=== PATIENT | female | born 1995 | race Caucasian/White ===

== ENCOUNTER 2017-01-30 11:06 | Emergency (ER) | payer OTHER ==
[2017-01-30 13:10] LABS: % IMMATURE GRANULYOCYTES 0.2 % (0.0-1.1); ABSOLUTE IMMATURE GRANULOCYTES 0.02 10^3/uL (0.00-0.10); ADD DIFF? NO; ADD MORPH? NO; ADD SCAN? NO; ATYPICAL LYMPHOCYTE FLAG 0 (0-99); FRAGMENT RBC FLAG 0 (0-99); HEMATOCRIT 41.9 % (38.0-47.0); HEMOGLOBIN 14.4 g/dL (12.6-16.3); LEFT SHIFT FLG 0 (0-99); LIPEMIA HEMOLYSIS FLAG 90 (0-99); MEAN CELL HEMOGLOBIN 28.9 pg (27.9-34.1); MEAN CELL HEMOGLOBIN CONCENTR. 34.4 g/dL (32.4-36.7); MEAN CELL VOLUME 84.1 fL (81.5-99.8); MEAN PLATELET VOLUME 9.3 fL (8.7-11.7); PLATELET CLUMPS FLAG 20 (0-99); PLATELET COUNT 264 10^3/uL (150-400); RED BLOOD CELL COUNT 4.98 10^6/uL (4.18-5.33); RED CELL DISTRIBUTION WIDTH 11.6 % (11.5-15.2)
[2017-01-30 13:15] LABS: ALANINE AMINOTRANSFERASE 28 IU/L (9-52); ALBUMIN 4.4 g/dL (3.5-5.0); ALKALINE PHOSPHATASE 62 IU/L (38-126); ANION GAP 13 mEq/L (8-16); ASPARTATE AMINOTRANSFERASE 33 IU/L (14-46); BILIRUBIN,TOTAL 0.7 mg/dL (0.1-1.4); BILIRUBIN-CONJUGATED 0.3 mg/dL (0.0-0.5); BILIRUBIN-UNCONJUGATED 0.4 mg/dL (0.0-1.1); CARBON DIOXIDE 21 mEq/l (22-31); CHLORIDE 104 mEq/L (97-110); CREATININE 0.9 mg/dL (0.6-1.0); GLOMERULAR FILTRATION RATE > 60; GLUCOSE 96 mg/dL (70-100); POTASSIUM 4.1 mEq/L (3.5-5.2); SODIUM 138 mEq/L (134-144); TOTAL PROTEIN 7.3 g/dL (6.3-8.2)
--- NOTE | 2017-01-30 13:21 | EDPHY ---
H & P Stated Complaint: Abd pain ~1 mon;blood in stool today Time Seen by Provider: 01/30/17 13:01 HPI/ROS: CHIEF COMPLAINT: Intermittent abdominal pain, bloody diarrhea x1 day HISTORY OF PRESENT ILLNESS: The patient presents to the ED with a 1 day history of bloody diarrhea. She reports 10 episodes of bloody diarrhea. She has associated mild generalized abdominal pain. The patient reports she has had mild ongoing intermittent abdominal pain for the past several weeks. She has no prior history of intestinal illness. The patient denies any significant abdominal surgical history. She does have a history of gastroesophageal reflux and mild anxiety. Patient states her pain was more intense this morning possibly an 8/10 however it has improved currently and is currently 2/10. Her pain is poorly localized. REVIEW OF SYSTEMS: A comprehensive 10 point review of systems is otherwise negative aside from elements mentioned in the history of present illness. Source: Patient Exam Limitations: No limitations - Personal History LMP (Females 10-55): IUD In Place Current Tetanus Diphtheria and Acellular Pertussis (TDAP): Yes - Medical/Surgical History PMH: Past medical history: Gastroesophageal reflux disease, anxiety - Family History Significant Family History: No pertinent family hx - Social History Smoking Status: Current some day smoker Alcohol Use: Occasionally - Physical Exam Exam: General Appearance: Alert, no distress Eyes: Pupils equal and round no pallor or injection ENT, Mouth: Mucous membranes moist Respiratory: There are no retractions, lungs are clear to auscultation Cardiovascular: Regular rate and rhythm Gastrointestinal: Abdomen is soft and nontender, no masses, bowel sounds normal Neurological: A&O, normal motor function, normal sensory exam, normal cranial nerves Skin: Warm and dry, no rashes Musculoskeletal: Neck is supple nontender Extremities: symmetrical, full range of motion Psychiatric: Patient is oriented X 3, there is no agitation Constitutional: Initial Vital Signs Temperature (C) 36.7 C 01/30/17 11:16 Heart Rate 82 01/30/17 11:16 Respiratory Rate 18 01/30/17 11:16 Blood Pressure 144/78 H 01/30/17 11:16 O2 Sat (%) 98 01/30/17 11:16 O2 Delivery Mode Room Air Allergies/Adverse Reactions: No Known Allergies Allergy (Unverified 01/30/17 11:15) Home Medications: Medication Instructions Recorded ALPRAZolam [Xanax 0.5 MG (*)] 0.5 mg PO 01/30/17 Levonorgestrel [Asha] 1 each IY 01/30/17 Ondansetron Odt [Zofran Odt] 4 mg PO Q4PRN PRN #20 tab 01/30/17 Sertraline HCl [Zoloft 50mg (*)] 50 mg PO DAILY 01/30/17 Medical Decision Making ED Course/Re-evaluation: The patient presents to the ED with several weeks of vague abdominal pain and 1 day history of bloody diarrhea. The patient has no recent antibiotic use or travel outside the [place]. The patient's abdominal examination is benign without focal tenderness. The patient was unable to produce a stool sample in the ED. I would like the patient to bring a stool sample back before starting antibiotics. The patient will be discharged home and instructed to return for any severe abdominal pain worsening symptoms or other concerns. The patient will also be advised to follow up with Gastroenterology for further evaluation of her abdominal pain if it persists. Re-evaluated the patient at 2:25 p.m.. She is in no acute distress. She remains with a benign abdominal exam. She will be discharged home with the plan as described above. Differential Diagnosis: Differential diagnosis considered includes gastroenteritis, mesenteric adenitis , pyelonephritis, pancreatitis, hepatitis - Data Points Laboratory Results: Laboratory Results 01/30/17 12:33 01/30/17 12:33 01/30/17 01/30/17 01/30/17 12:33 12:33 12:33 WBC 8.41 10^3/uL 10^3/uL (3.80-9.50) RBC 4.98 10^6/uL 10^6/uL (4.18-5.33) Hgb 14.4 g/dL g/dL (12.6-16.3) Hct 41.9 % % (38.0-47.0) MCV 84.1 fL fL (81.5-99.8) MCH 28.9 pg pg (27.9-34.1) MCHC 34.4 g/dL g/dL (32.4-36.7) RDW 11.6 % % (11.5-15.2) Plt Count 264 10^3/uL 10^3/uL (150-400) MPV 9.3 fL fL (8.7-11.7) Neut % (Auto) 72.3 % % (39.3-74.2) Lymph % (Auto) 18.4 % % (15.0-45.0) [place] % (Auto) 4.0 % L % (4.5-13.0) Eos % (Auto) 4.3 % % (0.6-7.6) Baso % (Auto) 0.8 % % (0.3-1.7) Nucleat RBC Rel Count 0.0 % % (0.0-0.2) Absolute Neuts (auto) 6.07 10^3/uL 10^3/uL (1.70-6.50) Absolute Lymphs (auto) 1.55 10^3/uL 10^3/uL (1.00-3.00) Absolute Monos (auto) 0.34 10^3/uL 10^3/uL (0.30-0.80) Absolute Eos (auto) 0.36 10^3/uL 10^3/uL (0.03-0.40) Absolute Basos (auto) 0.07 10^3/uL 10^3/uL (0.02-0.10) Absolute Nucleated RBC 0.00 10^3/uL 10^3/uL (0-0.01) Immature Gran % 0.2 % % (0.0-1.1) Immature Gran # 0.02 10^3/uL 10^3/uL (0.00-0.10) Sodium 138 mEq/L mEq/L (134-144) Potassium 4.1 mEq/L mEq/L (3.5-5.2) Chloride 104 mEq/L mEq/L (97-110) Carbon Dioxide 21 mEq/l L mEq/l (22-31) Anion Gap 13 mEq/L mEq/L (8-16) BUN 14 mg/dL mg/dL (7-23) Creatinine 0.9 mg/dL mg/dL (0.6-1.0) Estimated GFR > 60 Glucose 96 mg/dL mg/dL (70-100) Calcium 10.0 mg/dL mg/dL (8.5-10.4) Total Bilirubin 0.7 mg/dL mg/dL (0.1-1.4) Conjugated Bilirubin 0.3 mg/dL mg/dL (0.0-0.5) Unconjugated Bilirubin 0.4 mg/dL mg/dL (0.0-1.1) AST 33 IU/L IU/L (14-46) ALT 28 IU/L IU/L (9-52) Alkaline Phosphatase 62 IU/L IU/L (38-126) Total Protein 7.3 g/dL g/dL (6.3-8.2) Albumin 4.4 g/dL g/dL (3.5-5.0) Lipase 65 IU/L IU/L (23-300) Beta HCG, Qual NEGATIVE Departure - Departure Disposition: Home, Routine, Self-Care Clinical Impression: Abdominal pain, Diarrhea Condition: Good Instructions: Gastroenteritis (ED) Additional Instructions: 1. Please return to the lab with a stool sample if you are able to obtain one. Please be sure to return with a prescription for the testing needed. After dropping off your stool test, please contact the emergency department in 24 hours to check the results of the test. The ED number is [phone]. 2. Please schedule a follow-up appointment with a solar photovoltaic installer you have been referred to for further evaluation of any ongoing abdominal pain. His name is Dr. Luc Kelly. You have been given his contact information. 3. Please return to the ED for severe abdominal pain, high fever, significant bloody diarrhea or other concerns. 4. Tylenol as needed for pain. Zofran as needed for nausea. Referrals: MATT Galvez,. [Clinic] - As per Instructions Luc Kelly MD [[facility] [place] Primary Care Provider] - As per Instructions Prescriptions: Ondansetron Odt [Zofran Odt] 4 mg PO Q4PRN PRN #20 tab PRN Reason: For Nausea
[2017-01-30 15:11] VITALS: BP 125/78; PULSE 80; RESP 16; TEMP 97.9; O2SAT 96
== END 2017-01-30 15:10 | disposition home or self-care (01) ==
DX: R19.7 Diarrhea, unspecified (principal); F17.200 Nicotine dependence, unspecified, uncomplicated

== ENCOUNTER 2017-02-13 00:07 | Emergency (ER) | payer OTHER ==
--- NOTE | 2017-02-13 00:13 | EDPHY ---
H & P Source: Patient Exam Limitations: No limitations - Medical/Surgical History Hx Asthma: No Hx Chronic Respiratory Disease: No Hx Diabetes: No Hx Cardiac Disease: No Hx Renal Disease: No Hx Cirrhosis: No Hx Alcoholism: No Other PMH: anxiety - Family History Significant Family History: No pertinent family hx - Social History Smoking Status: Current some day smoker Alcohol Use: Heavy Drug Use: Other Time Seen by Provider: 02/13/17 00:10 HPI/ROS: CHIEF COMPLAINT: Intoxication HISTORY OF PRESENT ILLNESS: The patient is a 21-year-old female who was partying all day at some type of sports at activity. She was drinking and taking Xanax throughout the day. Friends told paramedics that she took either 7 or 17 Xanax. Also had multiple drinks. She got in an argument the at 1 point with her today but it is not clear when. Friends state that this was more of a alliance party however not a suicide attempt. Police and paramedics were called because she was unresponsive. She is vomiting on herself. She has stable vital signs when they arrived. They gave her 2 doses of 0.4 mg Narcan with no response. She is protecting her airway. She had an INCUBATOR MACHINE OPERATOR tube placed in pulled out. REVIEW OF SYSTEMS: Unable to obtain secondary to condition EXAM: GENERAL: Overweight, covered in vomit HEAD: Atraumatic, normocephalic. EYES: Pupils equal round and reactive to light, extraocular movements intact, sclera anicteric, conjunctiva are normal. ENT: TMs normal, nares patent, oropharynx clear without exudates. Moist mucous membranes. NECK: No deformity LUNGS: Breath sounds clear to auscultation bilaterally and equal. No wheezes rales or rhonchi. HEART: Regular rate and rhythm without murmurs, rubs or gallops. ABDOMEN: No tenderness BACK: No CVA tenderness, no spinal tenderness, step-offs or deformities EXTREMITIES: Normal range of motion, no pitting or edema. No clubbing or cyanosis. NEUROLOGICAL: Somnolecent , moving all extremities, pupils reactive PSYCH: Responsive to painful stimuli SKIN: Warm, dry, normal turgor, no visible rashes or lesions. (Solomon Mariano) Constitutional: Initial Vital Signs Temperature (C) 36.3 C 02/13/17 00:14 Heart Rate 99 02/13/17 00:14 Respiratory Rate 18 02/13/17 00:14 Blood Pressure 116/72 02/13/17 00:14 O2 Sat (%) 97 02/13/17 00:14 O2 Delivery Mode Room Air O2 (L/minute) 1 Allergies/Adverse Reactions: No Known Allergies Allergy (Unverified 01/30/17 11:15) Home Medications: Medication Instructions Recorded ALPRAZolam [Xanax 0.5 MG (*)] 0.5 mg PO 01/30/17 Levonorgestrel [Asha] 1 each IY 01/30/17 Ondansetron Odt [Zofran Odt] 4 mg PO Q4PRN PRN #20 tab 01/30/17 Sertraline HCl [Zoloft 50mg (*)] 50 mg PO DAILY 01/30/17 Medical Decision Making - Diagnostics EKG Interpretation: An EKG obtained and was read and documented in trace view. Please see trace view for full reading and report. Sinus rhythm, tachycardia, no ischemic changes or interval abnormalities (Solomon Mariano) ED Course/Re-evaluation: 6:45 p.m.-this patient was seen by mental health and felt appropriate for outpatient treatment of anxiety and polysubstance abuse. She denies suicidal ideation. (Frances Chan) 12:40 a.m. the police brought a M1 hold and tell us that the patient is in fact suicidal and made a phone call stating that she is going to take all of her Xanax. 6:30 a.m. the patient is sleeping and intoxicated. She is saturating 97% on room air. She is slightly tachycardic. She is being hydrated. No signs of withdrawal. She will require sobriety and then psychiatric evaluation. Care transferred to Dr. Manjeet Pollard at shift change. 7am The patient is easy to arouse. She is answering questions appropriately She denies any suicidality, she states she was just partying. She denies being . We will continue to monitor for sobriety and re-eval. (Solomon Mariano ) Differential Diagnosis: Partial list of the Differential diagnosis considered include but were not limited to; intoxication, suicidality, overdose and although unlikely based on the history and physical exam, I also considered infection, head injury, arrhythmia, withdrawal. (Rozeski,Solomon E) Other Provider: I assumed care of the patient at 7 o'clock in the morning pending psychiatric disposition. She remained stable throughout my shift. She is currently undergoing psychiatric evaluation. The patient will be transferred to Dr. Frances Chan at 4:00 p.m.. (Manjeet Pollard) - Data Points Laboratory Results: Laboratory Results 02/13/17 00:25 02/13/17 00:25 Medications Given: Discontinued Medications Acetaminophen (Tylenol) 1,000 mg PO EDNOW ONE Stop: 02/13/17 12:41 Last Admin: 02/13/17 12:41 Dose: 1,000 mg Sodium Chloride (Ns) 1,000 mls @ 0 mls/hr IV EDNOW ONE; Wide Open PRN Reason: Protocol Stop: 02/13/17 06:47 Last Admin: 02/13/17 06:52 Dose: 1,000 mls Sodium Chloride (Ns) 1,000 mls @ 0 mls/hr IV ONCE ONE PRN Reason: Wide Open Stop: 02/13/17 12:41 Last Admin: 02/13/17 12:42 Dose: 1,000 mls Departure - Departure Disposition: Home, Routine, Self-Care Clinical Impression: Suicide ideation, Polysubstance abuse Alcoholic intoxication Qualifiers: Complication of substance-induced condition: uncomplicated Qualified Code(s): F10.920 - Alcohol use, unspecified with intoxication, uncomplicated Condition: Fair Instructions: Suicide Prevention for Adults (ED), Polysubstance Abuse (ED) Additional Instructions: Follow-up with mental health as suggested. Referrals: Marcelo Mejia MD [Medical Doctor] - As per Instructions Stand Alone Forms: School Excuse
[2017-02-13 00:55] LABS: % IMMATURE GRANULYOCYTES 0.5 % (0.0-1.1); ABSOLUTE IMMATURE GRANULOCYTES 0.06 10^3/uL (0.00-0.10); ADD DIFF? NO; ADD MORPH? NO; ADD SCAN? NO; ATYPICAL LYMPHOCYTE FLAG 10 (0-99); FRAGMENT RBC FLAG 0 (0-99); HEMATOCRIT 45.1 % (38.0-47.0); HEMOGLOBIN 14.8 g/dL (12.6-16.3); LEFT SHIFT FLG 0 (0-99); LIPEMIA HEMOLYSIS FLAG 80 (0-99); MEAN CELL HEMOGLOBIN 28.6 pg (27.9-34.1); MEAN CELL HEMOGLOBIN CONCENTR. 32.8 g/dL (32.4-36.7); MEAN CELL VOLUME 87.1 fL (81.5-99.8); MEAN PLATELET VOLUME 9.6 fL (8.7-11.7); PLATELET CLUMPS FLAG 0 (0-99); PLATELET COUNT 371 10^3/uL (150-400); RED BLOOD CELL COUNT 5.18 10^6/uL (4.18-5.33); RED CELL DISTRIBUTION WIDTH 11.7 % (11.5-15.2)
[2017-02-13 00:59] LABS: ANION GAP 21 mEq/L (8-16); CARBON DIOXIDE 18 mEq/l (22-31); CHLORIDE 108 mEq/L (97-110); GLOMERULAR FILTRATION RATE > 60; GLUCOSE 100 mg/dL (70-100); SODIUM 147 mEq/L (134-144)
[2017-02-13 01:10] LABS: ETHANOL SERUM 331 mg/dL (0-10)
[2017-02-13 01:19] LABS: SALICYLATE 4.6 mg/dL (2.0-20.0)
--- NOTE | 2017-02-13 06:18 | CPEKG ---
Heart Rate: 108 RR Interval: 556 P-R Interval: 160 QRSD Interval: 72 QT Interval: 332 QTC Interval: 445 P [place]: 39 QRS [place]: 12 T Wave [place]: 15 EKG Severity - OTHERWISE NORMAL ECG - EKG Impression: SINUS TACHYCARDIA Electronically Signed By: Solomon Mariano 13-Feb-2017 06:40:06
[2017-02-13] MEDS ORDERED: NS 1,000 ML IV ONE ×2 (06:46→12:40)
[2017-02-13] MEDS ORDERED: ACETAMINOPHEN 500 MG TAB ONE (12:39)
[2017-02-13] MEDS ORDERED: ACETAMINOPHEN 500 MG TAB PO ONE (12:40)
[2017-02-13 16:10] VITALS: RESP 20
[2017-02-13 18:56] VITALS: BP 128/75; PULSE 105; TEMP 98.6; O2SAT 96
== END 2017-02-13 19:01 | disposition home or self-care (01) ==
LOC: EDUNIT#
DX: R45.851 Suicidal ideations (principal); E86.9 Volume depletion, unspecified; F19.10 Other psychoactive substance abuse, uncomplicated; F10.920 Alcohol use, unspecified with intoxication, uncomplicated; F17.200 Nicotine dependence, unspecified, uncomplicated
CPT/HCPCS: 80305; G0480